=== PATIENT | female | born 1975 | race Caucasian/White ===

== ENCOUNTER 2018-01-28 15:44 | Emergency (ER) | payer OTHER ==
[~2018-01-28] VITALS: Ht 165.1 cm; Wt 108.9 kg
--- NOTE | 2018-01-28 15:47 | NUR ---
EKG done in triage room
[2018-01-28 15:48] VITALS: BP_SYST 127
--- NOTE | 2018-01-28 15:54 | NUR ---
placed in bed 6. in gown, on monitor. denies sob, nausea, vomiting. reports chest pressure and rapid heart rate
--- NOTE | 2018-01-28 16:12 | NUR ---
LAC 20G IV, blood drawn for lab. Patient c/o light-headedness. aware
[2018-01-28] MEDS ORDERED: LORazepam 2 MG/ML VIAL IVP ONE (16:30)
[2018-01-28] MEDS ORDERED: ASPIRIN 81 MG TAB.CHEW PO ONE (16:30)
[2018-01-28 16:33] LABS: BASOPHILS # (AUTO) 0.1 K/uL (0.0-0.2); EOSINOPHILS # (AUTO) 0.3 K/uL (0.0-0.4); EOSINOPHILS % (AUTO) 2.5 % (0.0-4.0); HEMATOCRIT 39.9 % (36-48); HEMOGLOBIN 12.7 g/dL (12.0-16.0); LYMPHOCYTES # (AUTO) 3.2 K/uL (1.0-5.5); LYMPHOCYTES % (AUTO) 24.3 % (20.5-51.5); MEAN CORPUSCULAR HEMOGLOBIN 30 pg (27-31); MEAN CORPUSCULAR HGB CONC 32 % (32-36); MEAN CORPUSCULAR VOLUME 93 fL (79.0-98.0); MONOCYTES # (AUTO) 0.7 K/uL (0.0-1.0); NEUTROPHILS # (AUTO) 8.7 K/uL (1.8-7.7); NEUTROPHILS % (AUTO) 67.2 % (40.0-70.0); PLATELET COUNT (AUTO) 395 K/uL (130-430); RED BLOOD CELL COUNT(AUTO) 4.29 MIL/uL (4.2-6.2); RED CELL DISTRIBUTION WIDTH 12.5 % (9.0-15.0)
[2018-01-28 16:51] LABS: CALCIUM 8.9 mg/dL (8.4-11.0); CREATININE 0.64 mg/dL (0.55-1.30); POTASSIUM 3.3 mmol/L (3.5-5.1)
[2018-01-28 16:56] LABS: ALBUMIN 3.4 g/dL (3.4-4.8); TOTAL BILIRUBIN 0.2 mg/dL (0.0-1.0)
[2018-01-28] MEDS ORDERED: LORazepam 2 MG/ML VIAL (FOR ER USE) ONE (16:59)
[2018-01-28 17:33] LABS: INR 0.9 (0.8-1.2); PROTHROMBIN TIME 9.4 SECS (9.5-12.5)
--- NOTE | 2018-01-28 18:00 | NUR ---
IV DC'D AND PRESSURE DRESSING APPLIED, PATIENT DISCHARGED HOME WITH PRESCRIPTION FOR [facility]. MEDICATION FACTS SHEET, DC INSTRUCTIONS AND WORK EXCUSE GIVEN TO PATIENT. PATIENT VERBALIZED UNDERSTANDING OF ALL INSTRUCTIONS. DR HARGROVE EXPLAINED DISCHARGE INSTRUCTIONS. PATIENT AMBULATED TO HER VEHICLE, DRIVING.
[2018-01-28 18:45] VITALS: BP_SYST 127
== END 2018-01-28 18:45 | disposition home or self-care (01) ==
LOC: SED 15:44
DX: R07.89 Other chest pain (principal); F41.9 Anxiety disorder, unspecified; F43.9 Reaction to severe stress, unspecified
CPT/HCPCS: 36415; 71045; 80053; 83605; 84484; 85025; 85610; 85730; 93005; 96374; 99284; J2060